=== PATIENT | female | born 1970 ===

== ENCOUNTER 2023-12-27 18:40 | Inpatient (IN) | payer BC, OTHER ==
[~2023-12-27] VITALS: Ht 167.6 cm; Wt 93.4 kg
[2023-12-27 21:44] VITALS: BP 141/53; PULSE 75; RESP 18; TEMP 98.6; O2SAT 98
[2023-12-27] MEDS ORDERED: LEVO200T7 PO (21:55)
[2023-12-27] MEDS ORDERED: LEVO175T4 PO (21:55)
[2023-12-27] MEDS ORDERED: ONDANSETRON HCL 4 MG/2 ML VIAL IV PRN (23:30)
[2023-12-27] MEDS ORDERED: MORPHINE SULFATE INJ 2 MG/ml SYRG IV PRN (23:30)
[2023-12-27 23:53] LABS: Basophils # (auto) 0.1 10 ^3/uL (0-0.2); Eosinophils # (auto) 0.1 10 ^3/uL (0-0.8); Eosinophils % (auto) 1.9 % (0.0-7.0); Lymphocytes # (auto) 3.3 10 ^3/uL (0.4-5.4); Monocytes # (auto) 0.4 10 ^3/uL (0-1.3); Red Cell Distribution Width 17.8 % (11.8-14.3); White Blood Cell 7.5 10^3/uL (4.4-10.8)
[2023-12-27 23:55] LABS: Basophils % (auto) 1.2 % (0.0-2.0); Hematocrit 33.4 % (36.0-46.0); Hemoglobin 10.3 g/dL (12.2-16.2); Lymphocytes % (auto) 44.2 % (10.0-50.0); Mean Corpuscular Hemoglobin 21.5 pg (28.0-32.0); Mean Corpuscular Hgb Conc. 30.8 g/dL (32.0-36.0); Mean Corpuscular Volume 69.8 fL (80.0-100.0); Monocytes % (auto) 5.3 % (0.0-12.0); Neutrophils # (auto) 3.6 10 ^3/uL (1.6-8.6); Neutrophils % (auto) 47.4 % (37.0-80.0); Red Blood Cells 4.79 10^6/uL (4.0-5.20)
[2023-12-28] VITALS (7 sets, daily range): BP systolic 117–131; BP diastolic 55–74; PULSE 61–86; RESP 16–18; TEMP 98.2–98.9; O2SAT 90–99
[2023-12-28 00:14] LABS: Alanine Aminotransferase 13 U/L (7-40); Albumin 3.7 g/dL (3.2-4.8); Alkaline Phosphatase 83 U/L (46-116); Anion Gap 7 (5-15); Aspartate Aminotransferase 20 U/L (13-40); BUN/Creatinine Ratio 10.5 (10.0-20.0); Bilirubin, Total 0.5 mg/dL (0.2-1.0); Blood Urea Nitrogen 8 mg/dL (9-23); Carbon Dioxide 26 mmol/L (20-30); Chloride 107 mmol/L (98-107); Cholesterol 153 mg/dL (< 200); Glucose 250 mg/dL (74-106); HDL Cholesterol 44 mg/dL (40-59); LDL Cholesterol 102 mg/dL (< 100); Potassium 3.4 mmol/L (3.5-5.1); Sodium 140 mmol/L (136-145); Triglycerides 109 mg/dL (< 150)
[2023-12-28 00:33] LABS: Platelet Estimate Adequate
[2023-12-28 00:34] LABS: Anisocytosis Slight; Hypochromia Moderate
[2023-12-28] MEDS: LEVOTHYROXINE SODIUM 25 MCG TAB PO SCH (06:40)
[2023-12-28] MEDS ORDERED: LEVOTHYROXINE SODIUM 25 MCG TAB PO SCH ×2 (06:45→10:00)
[2023-12-28] MEDS: NITROGLYCERIN 0.4 MG SL TAB SL PRN (07:13)
[2023-12-28] MEDS: LEVOTHYROXINE SODIUM 25 MCG TAB PO ONE (08:47)
[2023-12-28] MEDS: LEVOTHYROXINE SODIUM 50 MCG TAB PO ONE (08:47)
[2023-12-28] MEDS: LEVOTHYROXINE SODIUM 100 MCG TAB PO ONE (08:47)
[2023-12-28] MEDS: POTASSIUM CHL 20 Meq TABLET PO ONE (08:47)
[2023-12-28] MEDS: ASPirin 81 mg TAB PO SCH (09:37)
[2023-12-28] MEDS ORDERED: LEVOTHYROXINE SODIUM 50 MCG TAB PO SCH (10:00)
[2023-12-28] MEDS: ACETAMINOPHEN 500 MG TAB PO PRN ×2 (10:53→21:58)
[2023-12-28] MEDS: MAALOX PLUS or MAALOX 30 ML PO ONE (10:54)
[2023-12-28 11:29] LABS: Urine Bacteria FEW /hpf (None Seen); Urine Blood Negative /uL (Negative); Urine Clarity HAZY (Clear); Urine Color Colorless (Yellow); Urine Protein, UAD Negative (Negative); Urine Specific Gravity 1.018 (1.001-1.035); Urine Urobilinogen Normal (Negative); Urine WBC 4 /hpf (0 - 5); Urine pH 6.5 (5.0-8.0)
[2023-12-28 11:34] LABS: Amphetamine Screen, Urine Neg (NEGATIVE); Barbiturate Scree,Urine Neg (NEGATIVE); Benzodiazephine Screen, Urine Neg (NEGATIVE); Cannabinoid Screen, Urine Neg (NEGATIVE); Cocaine Screen, Urine Neg (NEGATIVE); Opiate Scree,Urine Neg (NEGATIVE); Phencyclidine Screen, Urine Neg (NEGATIVE)
[2023-12-28 14:01] LABS: % Iron Saturation 3.9 % (15-50)
[2023-12-28 14:05] LABS: Ferritin 2.7 ng/mL (10-291); Folate (Folic Acid) 17.84 ng/mL (>5.38)
[2023-12-28] MEDS: cefTRIAXone 1GM/50ML D5W 50 ML IV ONE (15:36)
[2023-12-28] MEDS: ERGOCALCIFEROL 50,000 UNIT(1.25MG) CAP PO SCH (16:26)
[2023-12-28] MEDS: IRON SUCROSE COMPLEX 100 ML IV SCH (16:26)
[2023-12-28] MEDS: CYANOCOBALAMIN (B-12) 1000 MCG/1 ML VIAL IM ONE (16:27)
[2023-12-28] MEDS: ATORVASTATIN 20 MG TAB PO SCH (21:46)
[2023-12-28] MEDS: TEMAZEPAM 15 MG CAP PO PRN (21:58)
[2023-12-29 05:19] VITALS: BP 122/68; PULSE 67; RESP 18; TEMP 98.1; O2SAT 97
[2023-12-29 06:00] LABS: Basophils # (auto) 0.1 10 ^3/uL (0-0.2); Eosinophils # (auto) 0.1 10 ^3/uL (0-0.8); Hemoglobin 10.4 g/dL (12.2-16.2); Lymphocytes # (auto) 3.2 10 ^3/uL (0.4-5.4); Mean Corpuscular Hemoglobin 20.9 pg (28.0-32.0); Monocytes # (auto) 0.4 10 ^3/uL (0-1.3); White Blood Cell 6.1 10^3/uL (4.4-10.8)
[2023-12-29 06:01] LABS: Basophils % (auto) 1.7 % (0.0-2.0); Eosinophils % (auto) 2.2 % (0.0-7.0); Hematocrit 34.7 % (36.0-46.0); Lymphocytes % (auto) 52.4 % (10.0-50.0); Mean Corpuscular Volume 69.7 fL (80.0-100.0); Monocytes % (auto) 6.8 % (0.0-12.0); Neutrophils # (auto) 2.3 10 ^3/uL (1.6-8.6); Neutrophils % (auto) 36.9 % (37.0-80.0); Nucleated Red Blood Cells % 0.1 %; Red Blood Cells 4.98 10^6/uL (4.0-5.20); Red Cell Distribution Width 18.1 % (11.8-14.3)
[2023-12-29 06:07] LABS: Chloride 108 mmol/L (98-107); Potassium 3.5 mmol/L (3.5-5.1); Sodium 139 mmol/L (136-145)
[2023-12-29 06:08] LABS: Anion Gap 6 (5-15); Calcium 8.7 mg/dL (8.7-10.4); Carbon Dioxide 25 mmol/L (20-30)
[2023-12-29 06:13] LABS: BUN/Creatinine Ratio 13.9 (10.0-20.0); Blood Urea Nitrogen 10 mg/dL (9-23); Glucose 237 mg/dL (74-106)
[2023-12-29] MEDS ORDERED: LEVOTHYROXINE SODIUM 50 MCG TAB PO SCH (07:00)
[2023-12-29] MEDS ORDERED: LEVOTHYROXINE SODIUM 25 MCG TAB PO SCH (07:00)
[2023-12-29] MEDS ORDERED: LEVOTHYROXINE SODIUM 100 MCG TAB PO SCH (07:00)
[2023-12-29] MEDS: LEVOTHYROXINE SODIUM 100 MCG TAB PO SCH (07:18)
[2023-12-29 08:00] VITALS: PULSE 71
[2023-12-29 08:06] LABS: Free Thyroxine Index 1.3 (1.2-4.9); Thyroxine (T4) 4.1 ug/dL (4.5-12.0)
[2023-12-29] MEDS: LACTULOSE 20Gm/30ML SOLN PO ONE (09:00)
[2023-12-29] MEDS: ADENOSINE 78 MG in GIVE UN-DILUTED 0 ML IV ONE (09:05)
[2023-12-29] MEDS ORDERED: CYANOCOBALAMIN (B-12) 1000 MCG/1 ML VIAL IM SCH (10:00)
[2023-12-29 10:40] VITALS: BP 124/74; PULSE 66; RESP 17; TEMP 98.4; O2SAT 98
[2023-12-29] MEDS: POTASSIUM CHL 20 Meq TABLET PO ONE (11:18)
[2023-12-29] MEDS: MAALOX PLUS or MAALOX 30 ML PO PRN (11:19)
[2023-12-29] MEDS: cefTRIAXone 1GM/50ML D5W 50 ML IV SCH (11:19)
[2023-12-29 12:45] VITALS: BP 129/71; PULSE 63; RESP 19; TEMP 98.5; O2SAT 98
[2023-12-29] MEDS ORDERED: CYAN-17 PO (16:17)
[2023-12-29] MEDS ORDERED: ERGO1CAP23 PO (16:17)
[2023-12-29] MEDS ORDERED: FERR-7 PO (16:19)
[2023-12-29 16:46] VITALS: BP 114/68; TEMP 36.9
[2023-12-29 17:24] VITALS: BP 128/70; PULSE 71; RESP 19; TEMP 98.5; O2SAT 97
== END 2023-12-29 18:30 | disposition home or self-care (01) | DRG 311 ==
LOC: UNDOADMIN 21:42 → TELE-CENTR 21:42 → UNDOADMIN 21:46 → TELE-CENTR 21:46
PROVIDERS: ADMIT Internal Medicine; ATTEND Internal Medicine
DX: I20.0 Unstable angina (principal); D50.9 Iron deficiency anemia, unspecified; E03.9 Hypothyroidism, unspecified; E66.01 Morbid (severe) obesity due to excess calories; R07.89 Other chest pain; Z68.33 Body mass index [BMI] 33.0-33.9, adult; E11.65 Type 2 diabetes mellitus with hyperglycemia; Z87.891 Personal history of nicotine dependence; Z88.6 Allergy status to analgesic agent; Z82.49 Family history of ischemic heart disease and other diseases of the circulatory system; Z90.49 Acquired absence of other specified parts of digestive tract
CPT/HCPCS: 36415; 71045; 78452; 80048; 80053; 80061; 80307; 81001; 82306; 82607; 82728; 82746; 83036; 83540; 83550; 83615; 83735; 84443; 84484; 85025; 85045; 93005; 93017; 93306; G0378; J0153; J1756